=== PATIENT | male | born 1950 | race Caucasian/White ===

== ENCOUNTER → 2017-02-16 | Outpatient (CLI) | payer MEDICARE ==
--- NOTE | 2017-02-16 10:31 | PCVCIMAG ---
APPROVED REPORT Study performed: 02/16/2017 09:42:11 EXAM: Comprehensive 2D, Doppler, and color-flow Echocardiogram Patient Location: Echo lab Status: routine Other Information Study Quality: Adequate Indications Palpitations Thoracic Aortic Aneurysm, Aortic insufficiency 2D Dimensions LVEF(%): 61.94 (>50%) IVSd: 10.70 (7-11mm) LVDd: 47.31 mm PWd: 10.70 (7-11mm)Ascending Ao: 45.19 (22-36mm) LVDs: 31.54 (25-40mm) Left Atrium: 44.79 (27-40mm) Aortic Root: 41.75 mm LV Single Plane 4CH: 60.44 % LV Single Plane 2CH: 58.81 %Moore's LVEF: 59.63 % Biplane EF: 60.2 % Volumes Left Atrial Volume (Systole) Single Plane 4CH: 72.84 mLSingle Plane 2CH: 78.60 mL LA ESV Index: 62.00 mL/m2 Aortic Valve AoV Peak Carlos.: 1.52 m/s AO Peak Gr.: 9.19 mmHgLVOT Max P.21 mmHg LVOT Max V: 1.03 m/s AI Vmax: 4.59 m/s AI Gooding: 2.77 m/s2 AI PHT: 483.96 ms Mitral Valve E/A Ratio: 0.8 MV Decel. Time: 329.88 ms MV E Max Carlos.: 0.44 m/s MV A Carlos.: 0.53 m/s IVRT: 107.27 ms Pulmonary Valve PV Peak Carlos.: 0.81 m/sPV Peak Gr.: 2.63 mmHg Pulmonary Vein P Vein S: 0.28 m/sP Vein A: 0.31 m/s P Vein D: 0.44 m/sP Vein A Dur.: 145.3 msec P Vein S/D Ratio: 0.64 Tricuspid Valve TR Peak Carlos.: 2.20 m/s TR Peak Gr.: 19.40 mmHg Left Ventricle The left ventricle is normal size. There is normal LV segmental wall motion. There is normal left ventricular wall thickness. Left ventricular systolic function is normal. The left ventricular ejection fraction is within the normal range. LVEF is 60%. Grade I diastolic dysfunction Right Ventricle The right ventricle is normal size. The right ventricular systolic function is normal. Atria Left atrium is mildly dilated. The right atrium size is normal. Aortic Valve The aortic valve is normal in structure. Mild to moderate aortic regurgitation. There is no aortic valvular stenosis. Mitral Valve The mitral valve is normal in structure. No mitral valve regurgitation noted. No evidence of mitral valve stenosis. Tricuspid Valve The tricuspid valve is normal in structure. Trace tricuspid regurgitation with PAP of 26 mmHg. Pulmonic Valve The pulmonary valve is normal in structure. There is mild pulmonic valvular regurgitation. Great Vessels Ascending Aortic root is dilated to 4.5 cm. IVC is normal in size and collapses with >50% inspiration Pericardium There is no pericardial effusion. <Conclusion> Left ventricular systolic function is normal. There is normal LV segmental wall motion. LVEF is 60%. Grade I diastolic dysfunction The aortic valve is normal in structure, trileaflet. Mild to moderate aortic regurgitation. No stenosis The mitral valve is normal in structure. No mitral valve regurgitation noted. Ascending Aortic root is dilated to 4.5 cm. Pulmonary artery pressure of 26mmHg There is no pericardial effusion.
== END | disposition home or self-care (01) ==
LOC: PCVCIMAG 09:16
PROVIDERS: ATTEND Internal Medicine
DX: I71.2 Thoracic aortic aneurysm, without rupture (principal); I08.2 Rheumatic disorders of both aortic and tricuspid valves; I10 Essential (primary) hypertension; I65.23 Occlusion and stenosis of bilateral carotid arteries
CPT/HCPCS: 80061; 93005; 93306; G0463

== ENCOUNTER → 2017-08-28 | Outpatient (CLI) | payer MEDICARE | END | disposition home or self-care (01) | LOC: PCVCCLINIC 13:01 | DX: I71.2 Thoracic aortic aneurysm, without rupture (principal); I35.1 Nonrheumatic aortic (valve) insufficiency; I10 Essential (primary) hypertension; E78.5 Hyperlipidemia, unspecified; R00.1 Bradycardia, unspecified | CPT/HCPCS: 80061; 93005; G0463 ==

== ENCOUNTER → 2018-08-26 | Outpatient (CLI) | payer MEDICARE | END | disposition home or self-care (01) | LOC: PCVCCLINIC 13:39 | PROVIDERS: ATTEND Internal Medicine | DX: I71.2 Thoracic aortic aneurysm, without rupture (principal); I35.1 Nonrheumatic aortic (valve) insufficiency; I10 Essential (primary) hypertension; E78.5 Hyperlipidemia, unspecified; C61 Malignant neoplasm of prostate | CPT/HCPCS: 36415; 80061; 93005; G0463 ==

== ENCOUNTER → 2019-02-26 | Outpatient (CLI) | payer MEDICARE ==
--- NOTE | 2019-02-26 16:36 | PCVCIMAG ---
APPROVED REPORT Study performed: 02/26/2019 14:11:10 EXAM: Comprehensive 2D, Doppler, and color-flow Echocardiogram Patient Location: Echo lab Status: routine BSA: 2.09 HR: 62 bpmBP: 110/70 mmHg Rhythm: NSR Other Information Study Quality: Good Risk Factors: Cardiac Risk Factors: Hyperlipidemia Indications Thoracic aortic aneursym 2D Dimensions IVSd: 10.10 (7-11mm)LVOT Diam: 21.20 (18-24mm) LVDd: 50.86 mm PWd: 9.62 (7-11mm)Ascending Ao: 46.33 (22-36mm) LVDs: 33.29 (25-40mm) Left Atrium: 45.32 (27-40mm) Aortic Root: 38.57 mm LV Single Plane 4CH: 63.07 % LV Single Plane 2CH: 65.16 % Biplane EF: 64.8 % Volumes Left Atrial Volume (Systole) Single Plane 4CH: 48.74 mLSingle Plane 2CH: 73.95 mL LA ESV Index: 29.00 mL/m2 Aortic Valve AoV Peak Carlos.: 1.52 m/s AO Peak Gr.: 9.30 mmHgLVOT Max P.23 mmHg LVOT Max V: 1.03 m/s VAIBHAV Vmax: 2.38 cm2 AI Vmax: 4.27 m/s AI Parker: 2.07 m/s2 AI PHT: 597.56 ms Mitral Valve E/A Ratio: 1.0 MV Decel. Time: 167.87 ms MV E Max Carlos.: 0.72 m/s MV A Carlos.: 0.73 m/s TDI E/Lateral E': 6.55E/Medial E': 12.00 Medial E' Carlos.: 0.06 m/s Lateral E' Carlos.: 0.11 m/s Pulmonary Valve PV Peak Carlos.: 0.82 m/sPV Peak Gr.: 2.70 mmHg Pulmonary Vein P Vein S: 0.61 m/sP Vein A: 0.45 m/s P Vein D: 0.44 m/sP Vein A Dur.: 76.1 msec P Vein S/D Ratio: 1.39 Tricuspid Valve TR Peak Carlos.: 2.40 m/s TR Peak Gr.: 23.02 mmHg Left Ventricle The left ventricle is normal size. There is normal LV segmental wall motion. There is normal left ventricular wall thickness. Left ventricular systolic function is normal. The left ventricular ejection fraction is within the normal range. LVEF is 55-60%. The left ventricular diastolic function is normal. Right Ventricle The right ventricle is normal size. The right ventricular systolic function is normal. Atria The left atrium size is normal. The right atrium size is normal. Aortic Valve The aortic valve is normal in structure. Mild aortic regurgitation. There is no aortic valvular stenosis. Mitral Valve The mitral valve is normal in structure. There is no mitral valve regurgitation noted. No evidence of mitral valve stenosis. Tricuspid Valve The tricuspid valve is normal in structure. Trace tricuspid regurgitation. Pulmonary artery pressure is 30mmHg. Pulmonic Valve The pulmonary valve is normal in structure. Trace pulmonic regurgitation. Great Vessels The aortic root is normal in size. The ascending aorta is dilated (4.7cm). IVC is normal in size and collapses >50% with inspiration. Pericardium There is no pericardial effusion. <Conclusion> Left ventricular systolic function is normal. There is normal LV segmental wall motion. LVEF is 55-60%. Normal diastolic function The aortic valve is normal in structure. Mild aortic regurgitation. The mitral valve is normal in structure. No mitral valve regurgitation. Trace tricuspid regurgitation. Pulmonary artery pressure of 30mmHg. The ascending aorta is dilated (4.7cm). There is no pericardial effusion.
== END | disposition home or self-care (01) ==
LOC: PCVCIMAG 13:48
PROVIDERS: ATTEND Internal Medicine
DX: I35.1 Nonrheumatic aortic (valve) insufficiency (principal); I71.2 Thoracic aortic aneurysm, without rupture; I10 Essential (primary) hypertension; E78.5 Hyperlipidemia, unspecified
CPT/HCPCS: 36415; 80061; 93005; 93306; G0463